=== PATIENT | male | born 1995 | race Caucasian/White ===

== ENCOUNTER 2016-08-19 19:36 | Inpatient (IN) | payer SELFPAY ==
[~2016-08-19] VITALS: Ht 172.7 cm; Wt 87.6 kg
--- NOTE | ~2016-08-19 | O ---
[place], [place] OPERATIVE NOTE NAME: [id number] UNIT #: [id number] ROOM: 516 DOCTOR: SAMPSON RIVERA MD BIRTHDATE: [birth year] DOS: 08/20/2016 PREOPERATIVE DIAGNOSIS: Acute pancreatitis. POSTOPERATIVE DIAGNOSIS: Acute cholecystitis. PROCEDURE: Laparoscopic cholecystectomy. SURGEON: Sampson Rivera MD JUMP ROLL OPERATOR: ANDRES. ANESTHESIA: General with endotracheal intubation. INDICATIONS: This is a 21-year-old gentleman who came in with abdominal pain and diagnosis of the acute pancreatitis and ultrasound of the gallbladder showed thickened gallbladder wall, it was decided to take the patient to the operating room for the above-mentioned procedure. The procedure and its complications explained to the patient in detail preoperatively. Complications that were discussed included but were not limited to bleeding, infection, hematoma/seroma/abscess formation, biloma formation, prolonged postoperative pain, damage to underlying vital structures, inadvertent injury to the common bile duct and incisional hernia formation. He agreed to proceed. DESCRIPTION OF PROCEDURE: After identifying the patient, the patient was brought to the operating suite and laid in the supine position. After induction of general anesthesia, the parts were painted and draped in the usual sterile fashion. Timeout procedure was called. An incision was made around the umbilicus in a curvilinear fashion. The skin and the subcutaneous tissue were incised in the line of the incision. The fascia was incised and 2 stay sutures were taken with the help of 0 Vicryl. Peritoneum was opened and a Jonathon port was introduced a pneumoperitoneum was created. The gallbladder was found to be acutely inflamed and edematous it was decided to proceed with laparoscopic cholecystectomy. An incision was made in the epigastric region of 10 mm and two 5 mm incisions were made in the right upper quadrant. The gallbladder was retracted superiorly and laterally. The cystic duct and the cystic artery were meticulously dissected until the angle of Calot was identified and the critical view of safety was obtained. Thereafter, each of these structures were clipped 3 times and cut between the first and the second clip. The gallbladder was then removed from the bed of the gallbladder with the help of electrocautery. It was placed in an EndoCatch bag and removed from the peritoneal cavity and sent for histopathological diagnosis. Hemostasis was achieved in the liver bed and saline was used for irrigation. Thereafter, the irrigation fluid was sucked away and there was no bleeding seen. Under direct vision, the right upper quadrant and the epigastric ports were removed and there was no bleeding seen. The umbilical port was also removed and additional suture was taken to close the fascia with the help of 0 Vicryl, the 2 stay sutures were tied together as well. Thereafter, the incision edges were approximated with the help of 4-0 Vicryl after they were infiltrated with 1% plain lidocaine. Dressing was given. The patient tolerated the procedure well and was extubated uneventfully and brought [place], [place] OPERATIVE NOTE NAME: CHONG GARCIA UNIT #: [id number] ROOM: 6 DOCTOR: SAMPSON RIVERA MD BIRTHDATE: [birth year] back to the recovery room in stable fashion. There were no complications. Dr. Sampson Rivera, the attending surgeon, was present throughout the operating case. Sampson Rivera MD CM:OPRECORD:OPERATIVE NOTE [id number] SAMPSON RIVERA MD 08/20/16 1225 interface
[~2016-08-19 19:36] MED LIST: HYDROCODONE BIT1 T11 PO; MOTRIN600 MG PO; MOTRIN800 MG PO; NKHM; ULTRAM50 MG PO
[2016-08-19 19:42] VITALS: BP 179/100
[2016-08-19 20:08] LABS: BASO # 0.1 10*3/uL (0.0-0.1); BASO % 0.4 % (0.0-1.0); EOS % 0.2 % (1.0-4.0); HEMOGLOBIN 14.2 g/dl (14.0-18.0); IG # 0.1 10*3/uL (0.0-0.1); LYMPH # 1.2 10*3/uL (1.3-4.4); MEAN CELL VOLUME 88.2 fl (80.0-94.0); MEAN CORPUSCULAR HGB 29.8 pg (27.0-31.0); MEAN CORPUSCULAR HGB CONC 33.8 g/dl (33.0-37.0); MEAN PLATELET VOLUME 11.5 fl (9.6-12.3); MONO # 0.6 10*3/uL (0.1-1.0); MONO % 3.8 % (3.0-9.0); NEUT # 14.7 10*3/uL (2.3-7.9); NEUT % 88.1 % (47.0-73.0); PLATELET COUNT AUTOMATED 180 10*3/uL (130-400); RED BLOOD COUNT 4.76 10*6/uL (4.50-5.90); RED CELL DISTRI WIDTH 11.6 % (0-14.5); WHITE BLOOD COUNT 16.7 10*3/uL (4.8-10.8)
[2016-08-19 20:13] LABS: BILIRUBIN NEGATIVE (NEGATIVE); BLOOD NEGATIVE (NEGATIVE); CLARITY CLEAR (CLEAR); COLOR YELLOW (YELLOW); GLUCOSE NEGATIVE (NEGATIVE); KETONE NEGATIVE (NEGATIVE); LEUKO ESTERASE NEGATIVE (NEGATIVE); NITRITE NEGATIVE (NEGATIVE); PROTEIN TRACE (NEGATIVE); SPECIFIC GRAVITY >= 1.030 (1.005-1.030); UROBILINOGEN 0.2 E.U./dl (0.2-1.0)
[2016-08-19 20:24] LABS: BACTERIA TRACE; MUCOUS TRACE; RBC 0-2 rbc/hpf (0-2); URINE REFLEX COMMENT NO (NO); WBC 0-2 wbc/hpf (0-5)
[2016-08-19 20:24] LABS: ALBUMIN 4.4 gm/dl (3.1-4.5); ALKALINE PHOSPHATASE 68 U/L (45-117); BILIRUBIN, TOTAL 0.7 mg/dl (0.2-1.0); BUN 13 mg/dl (7-24); CARBON DIOXIDE 27 mmol/L (21-32); CHLORIDE 101 mmol/L (98-107); EST GLOM FILT AFRICAN AMERICAN > 60 ml/min; GLUCOSE 150 mg/dL (65-99); POTASSIUM 3.9 mmol/L (3.5-5.1); SGOT/AST 27 IU/L (3-35); SGPT/ALT 44 U/L (12-78); SODIUM 140 mmol/L (136-145); TOTAL PROTEIN 7.1 gm/dL (6.4-8.2)
[2016-08-19 21:21] VITALS: BP 158/78
[2016-08-19 22:30] VITALS: BP 161/86
[2016-08-20] VITALS (11 sets, daily range): BP systolic 132–166; BP diastolic 63–92
[2016-08-20 03:26] LABS: URINE AMPHETAMINES < 1000 (1000ng/ml); URINE BARBITURATES < 200 (200ng/ml); URINE COCAINE < 300 (300ng/ml)
[2016-08-20 06:30] LABS: BASO % 0.2 % (0.0-1.0); EOS # 0.1 10*3/uL (0.0-0.4); EOS % 0.6 % (1.0-4.0); HEMATOCRIT 39.6 % (42.0-52.0); HEMOGLOBIN 13.4 g/dl (14.0-18.0); LYMPH % 19.7 % (27.0-41.0); MEAN CELL VOLUME 88.6 fl (80.0-94.0); MEAN CORPUSCULAR HGB CONC 33.8 g/dl (33.0-37.0); MONO % 9.6 % (3.0-9.0); NEUT # 7.2 10*3/uL (2.3-7.9); NEUT % 69.6 % (47.0-73.0); PLATELET COUNT AUTOMATED 168 10*3/uL (130-400); RED BLOOD COUNT 4.47 10*6/uL (4.50-5.90); RED CELL DISTRI WIDTH 11.7 % (0-14.5); WHITE BLOOD COUNT 10.3 10*3/uL (4.8-10.8)
[2016-08-20 06:59] LABS: PROTHROMBIN TIME 10.6 SECONDS (9.0-12.4)
[2016-08-20 07:03] LABS: ALBUMIN 3.8 gm/dl (3.1-4.5); ALKALINE PHOSPHATASE 50 U/L (45-117); BUN 10 mg/dl (7-24); CARBON DIOXIDE 29 mmol/L (21-32); CHLORIDE 105 mmol/L (98-107); CHOLESTEROL 130 mg/dL (<200); EST GLOM FILT AFRICAN AMERICAN > 60 ml/min; FREE T4 1.07 ng/dl (0.76-1.46); GLUCOSE 109 mg/dL (65-99); HDL CHOLESTEROL 73 mg/dl (40-60); LDL CHOLESTEROL 44 mg/dL (9-159); MAGNESIUM 1.6 mg/dL (1.5-2.1); POTASSIUM 3.8 mmol/L (3.5-5.1); SGOT/AST 19 IU/L (3-35); SGPT/ALT 40 U/L (12-78); SODIUM 142 mmol/L (136-145); TOTAL PROTEIN 6.4 gm/dL (6.4-8.2); TRIGLYCERIDES 63 mg/dl (<150); VLDL CHOLESTEROL 13 mg/dL (6-40)
[2016-08-20 07:08] LABS: THYROID STIM HORMONE (HS) 0.159 uIU/ml (0.358-4.75)
[2016-08-20 07:40] LABS: FOLIC ACID 14.26 ng/mL (>5.38)
[2016-08-21] VITALS: BP 135/70
[2016-08-21 08:00] VITALS: BP 134/66
[2016-08-21 12:00] VITALS: BP 136/78
[2016-08-21] MEDS ORDERED: PERCOCET 325 MG1 TA2 PO (13:43)
== END 2016-08-21 14:50 | disposition home or self-care (01) | DRG 417 ==
LOC: ED 19:36 → 5E 22:03 → EDHOLD 22:03 → 5E 22:06
PROVIDERS: Emergency Medicine; Student in an Organized Health Care Education/Training Program
PROC: 0FT44ZZ Resection of Gallbladder, Percutaneous Endoscopic Approach (ICD-10-PCS; principal; 2016-08-20)
DX: K80.42 Calculus of bile duct with acute cholecystitis without obstruction (principal); K85.90 Acute pancreatitis without necrosis or infection, unspecified; S30.1XXA Contusion of abdominal wall, initial encounter; I10 Essential (primary) hypertension

== ENCOUNTER 2018-07-22 13:58 | Emergency (ER) | payer SELFPAY ==
[~2018-07-22] VITALS: Ht 175.2 cm; Wt 78.5 kg
[~2018-07-22 13:58] MED LIST changes: +PERCOCET 325 MG1 TA2 PO
[2018-07-22 14:30] LABS: BASO # 0.1 10*3/uL (0.0-0.1); BASO % 0.6 % (0.0-1.0); EOS # 0.2 10*3/uL (0.0-0.4); HEMATOCRIT 50.7 % (42.0-52.0); HEMOGLOBIN 16.9 g/dl (14.0-18.0); LYMPH # 2.2 10*3/uL (1.3-4.4); LYMPH % 28.1 % (27.0-41.0); MEAN CORPUSCULAR HGB 30.3 pg (27.0-31.0); MEAN CORPUSCULAR HGB CONC 33.3 g/dl (33.0-37.0); MEAN PLATELET VOLUME 10.7 fl (9.6-12.3); MONO # 0.6 10*3/uL (0.1-1.0); MONO % 6.9 % (3.0-9.0); NEUT # 4.9 10*3/uL (2.3-7.9); PLATELET COUNT AUTOMATED 222 10*3/uL (130-400); RED BLOOD COUNT 5.57 10*6/uL (4.50-5.90); RED CELL DISTRI WIDTH 11.9 % (0-14.5); WHITE BLOOD COUNT 7.9 10*3/uL (4.8-10.8)
[2018-07-22 14:42] LABS: BILIRUBIN NEGATIVE (NEGATIVE); BLOOD NEGATIVE (NEGATIVE); CLARITY CLEAR (CLEAR); COLOR YELLOW (YELLOW); GLUCOSE NEGATIVE (NEGATIVE); KETONE NEGATIVE (NEGATIVE); LEUKO ESTERASE NEGATIVE (NEGATIVE); NITRITE NEGATIVE (NEGATIVE); PH 7.5 (5.0-9.0); SPECIFIC GRAVITY 1.015 (1.005-1.030); UROBILINOGEN 0.2 E.U./dl (0.2-1.0)
[2018-07-22 14:44] LABS: ALBUMIN 4.5 gm/dl (3.1-4.5); ALKALINE PHOSPHATASE 73 U/L (45-117); BUN 18 mg/dl (7-24); CHLORIDE 102 mmol/L (98-107); LIPASE 845 U/L (73-393); POTASSIUM 3.9 mmol/L (3.5-5.1); SGOT/AST 22 IU/L (3-35); SGPT/ALT 32 U/L (12-78); SODIUM 140 mmol/L (136-145); TOTAL PROTEIN 8.2 gm/dL (6.4-8.2)
[2018-07-22 14:53] LABS: BACTERIA 3+
[2018-07-22 15:35] VITALS: BP 128/77
[2018-07-22] MEDS ORDERED: NAPROSYN500 MG PO (16:39)
== END 2018-07-22 16:43 | disposition home or self-care (01) ==
LOC: ED 13:58
PROVIDERS: Nurse Practitioner Family
DX: N20.0 Calculus of kidney (principal); R74.8 Abnormal levels of other serum enzymes; Z88.0 Allergy status to penicillin; Z90.49 Acquired absence of other specified parts of digestive tract

== ENCOUNTER 2023-04-23 17:02 | Emergency (ER) | payer OTHER ==
[~2023-04-23] VITALS: Wt 96.2 kg
[~2023-04-23 17:02] MED LIST changes: +NAPROSYN500 MG PO
[2023-04-23 17:36] VITALS: BP 134/79
[2023-04-23] MEDS ORDERED: VRAYLAR6 MG PO (17:38)
[2023-04-23] MEDS ORDERED: TRILEPTAL300 MG PO ×2 (17:38)
[2023-04-23] MEDS ORDERED: BUSPIRONE15 MG PO (17:39)
[2023-04-23 18:44] LABS: BILIRUBIN Negative (Negative); BLOOD Negative (Negative); CLARITY Clear (Clear); COLOR Yellow (Yellow); GLUCOSE Negative (Negative); KETONE Negative (Negative); LEUKO ESTERASE Negative (Negative); NITRITE Negative (Negative); PH 6.5 (4.5-8.0); SPECIFIC GRAVITY <= 1.005 (1.001-1.030); UROBILINOGEN 0.2 E.U./dl (0.0-1.0)
[2023-04-23 18:55] LABS: WBC 0-2 wbc/hpf (0-5)
== END 2023-04-23 19:50 | disposition home or self-care (01) ==
LOC: ED 17:02
PROVIDERS: Nurse Practitioner Family
DX: R35.0 Frequency of micturition (principal); R39.15 Urgency of urination; F31.9 Bipolar disorder, unspecified; J45.909 Unspecified asthma, uncomplicated; Z88.0 Allergy status to penicillin; Z90.49 Acquired absence of other specified parts of digestive tract; Z98.890 Other specified postprocedural states; F12.90 Cannabis use, unspecified, uncomplicated